=== PATIENT | male | born 1960 | race Two or more races ===

== ENCOUNTER 2018-01-21 17:01 | Emergency (ER) | payer BC, OTHER ==
[~2018-01-21] VITALS: Ht 175.3 cm; Wt 86.0 kg
[2018-01-21 17:13] VITALS: BP 115/88
== END 2018-01-21 17:58 | disposition home or self-care (01) ==
LOC: ER 17:02
DX: R50.9 Fever, unspecified (principal)
CPT/HCPCS: 99281